=== PATIENT | female | born 1995 | race African-American/Black ===

== ENCOUNTER 2018-12-20 08:07 | Emergency (ER) | payer SELFPAY ==
[~2018-12-20] VITALS: Ht 167.6 cm; Wt 75.0 kg
[2018-12-20 09:16] VITALS: BP 121/62
== END 2018-12-20 09:19 | disposition home or self-care (01) ==
LOC: ER 08:07
DX: S16.1XXA Strain of muscle, fascia and tendon at neck level, initial encounter (principal); Y93.89 Activity, other specified; R03.0 Elevated blood-pressure reading, without diagnosis of hypertension; V49.59XA Passenger injured in collision with other motor vehicles in traffic accident, initial encounter; Y92.410 Unspecified street and highway as the place of occurrence of the external cause
CPT/HCPCS: 99283

== ENCOUNTER 2025-05-05 11:38 | Emergency (ER) | payer SELFPAY ==
[~2025-05-05] VITALS: Ht 162.6 cm; Wt 100.0 kg
[2025-05-05 11:42] VITALS: O2SAT 100
[2025-05-05 13:05] LABS: CLARITY URINE CLOUDY (CLEAR); COLOR URINE RED (YELLOW); GLUCOSE URINE NEGATIVE (NEGATIVE); KETONES URINE NEGATIVE (NEGATIVE); LEUKOCYTE ESTERASE URINE TRACE (NEGATIVE); NITRITE URINE NEGATIVE (NEGATIVE); OCCULT BLOOD URINE 3+ (NEGATIVE); PH URINE 6.5 (4.5-8.0); PROTEIN URINE TRACE (NEGATIVE); SPECIFIC GRAVITY URINE 1.016 (1.005-1.030); UROBILINOGEN URINE 0.2 E.U./dL (0.2-1.0)
[2025-05-05 13:16] LABS: BASOPHILS % 0.4 % (0.0-2.0); EOSINOPHILS % 2.8 % (0.0-5.0); HEMATOCRIT. 36.3 % (36.0-48.0); HEMOGLOBIN. 11.5 g/dL (12.0-16.0); LYMPHOCYTES % 30.1 % (20.0-50.0); MEAN PLATELET VOLUME 6.2 fl (7.4-10.4); MONOCYTES % 7.2 % (2.0-8.0); NEUTROPHILS % 59.5 % (40.0-76.0); PLATELET 483 x1000/uL (130-400); RED BLOOD CELL COUNT 5.27 mill/uL (4.2-5.4); RED CELL DISTRIBUTION WIDTH 16.6 % (11.6-14.6)
[2025-05-05 13:17] LABS: ADD RBC MORPHOLOGY YES
[2025-05-05 13:22] LABS: RBC URINE TNTC /hpf (0-2); SQUAMOUS EPITHELIAL CELL URINE FEW /lpf (RARE/1+)
[2025-05-05] MEDS: LIDOCAINE 5% PATCH TOP SCH (13:22)
[2025-05-05 13:23] LABS: BACTERIA URINE NONE SEEN; WBC URINE 0-2 /hpf (0-2)
[2025-05-05 14:11] LABS: PLATELET ESTIMATE INCREASED
[2025-05-05 14:12] LABS: HCG SCREEN NEGATIVE
[2025-05-05 14:31] LABS: CREATININE 0.6 mg/dL (0.6-1.0); UREA NITROGEN BLOOD 9 mg/dL (9-23)
[2025-05-05 14:33] LABS: ASPARTATE AMINOTRANSFERASE 16 IU/L (<34); BILIRUBIN DIRECT < 0.1 mg/dL (<=3.0); BILIRUBIN TOTAL 0.2 mg/dL (0.1-1.0)
[2025-05-05 14:34] LABS: PROTEIN TOTAL 8.0 g/dL (6.0-8.3)
[2025-05-05] MEDS ORDERED: DEX4 MT (14:38)
[2025-05-05 14:49] VITALS: BP 118/65; PULSE 81; RESP 16; TEMP 37.2; O2SAT 100
[2025-05-05] MEDS: KETOROLAC 30MG/ML VIAL IM ONE (14:49)
== END 2025-05-05 14:51 | disposition home or self-care (01) ==
LOC: ER 11:38
DX: M54.40 Lumbago with sciatica, unspecified side (principal); R19.5 Other fecal abnormalities; Z79.899 Other long term (current) drug therapy
CPT/HCPCS: 80076; 80048; 81003; 81025; 84703; 83690; 83735; 85025; 36415; 96372; 99283; J1885; Z7610; A4606